=== PATIENT | female | born 1935 | race Caucasian/White ===

== ENCOUNTER 2018-10-24 08:53 | Inpatient (IN) | payer OTHER, MEDICAID ==
[~2018-10-24] VITALS: Ht 165.1 cm; Wt 80.3 kg
[2018-10-24 09:00] VITALS: BP_SYST 143
[2018-10-24] MEDS ORDERED: NACL 0.9% 1,000 ML IV ONE (09:11)
[2018-10-24] MEDS ORDERED: FURO-149 PEG (09:17)
[2018-10-24] MEDS ORDERED: AMIO100T4 PEG (09:19)
[2018-10-24] MEDS ORDERED: CLOP300T2 PEG (09:23)
[2018-10-24] MEDS ORDERED: NEPH PEG (09:23)
[2018-10-24] MEDS ORDERED: DOCU-144 PEG (09:23)
[2018-10-24] MEDS ORDERED: TRAM1TAB33 PEG (09:32)
[2018-10-24] MEDS ORDERED: SSNOVOLOG SUBCUT (09:32)
[2018-10-24] MEDS ORDERED: MEMA10TA PEG (09:32)
[2018-10-24] MEDS ORDERED: ASCO500S9 PEG (09:32)
[2018-10-24 09:49] LABS: BASOPHILS % (AUTO) 0.3 % (0.0-2.0); EOSINOPHILS # (AUTO) 0.2 K/uL (0.0-0.4); EOSINOPHILS % (AUTO) 1.5 % (0.0-4.0); HEMATOCRIT 33.7 % (36-48); HEMOGLOBIN 10.9 g/dL (12.0-16.0); LYMPHOCYTES # (AUTO) 1.8 K/uL (1.0-5.5); LYMPHOCYTES % (AUTO) 11.2 % (20.5-51.5); MEAN CORPUSCULAR HEMOGLOBIN 30 pg (27-31); MEAN CORPUSCULAR HGB CONC 33 % (32-36); MEAN CORPUSCULAR VOLUME 92 fL (79.0-98.0); MONOCYTES % (AUTO) 6.4 % (1.7-9.3); NEUTROPHILS # (AUTO) 12.7 K/uL (1.8-7.7); NEUTROPHILS % (AUTO) 80.6 % (40.0-70.0); PLATELET COUNT (AUTO) 178 K/uL (130-430); RED BLOOD CELL COUNT(AUTO) 3.68 MIL/uL (4.2-6.2); RED CELL DISTRIBUTION WIDTH 15.4 % (9.0-15.0); WHITE BLOOD COUNT (AUTO) 15.7 K/uL (4.8-10.8)
[2018-10-24 09:51] LABS: ANION GAP 12 (5-15); CHLORIDE 94 mmol/L (98-107); CREATININE 3.44 mg/dL (0.55-1.30); GLUCOSE 123 mg/dL (70-99); POTASSIUM 4.3 mmol/L (3.5-5.1); SODIUM SERUM 129 mmol/L (136-145); UREA NITROGEN, BLOOD 97 mg/dL (8-21)
[2018-10-24 09:55] LABS: ALANINE AMINOTRANSFERASE 18 U/L (12-78); ALBUMIN 2.6 g/dL (3.4-4.8); AMYLASE 71 U/L (0-100); ASPARTATE AMINOTRANSFERASE 15 U/L (10-37); LIPASE 230 U/L (73-393); TOTAL BILIRUBIN 0.3 mg/dL (0.0-1.0)
[2018-10-24] MEDS ORDERED: D5/0.45 NS 1,000 ML IV ONE (10:45)
[2018-10-24] MEDS ORDERED: INSULIN REGULAR, HUMAN 100 UNITS/ML, 10 ML VIAL (novoLIN R) SUBCUT PRN (10:45)
[2018-10-24] MEDS ORDERED: GLUCOSE 15 GM GEL (in 37.5 GM TUBE) PO PRN (11:00)
[2018-10-24] MEDS ORDERED: D5W 1,000 ML IV PRN (11:00)
[2018-10-24] MEDS ORDERED: DEXTROSE 50%-WATER 50 ML DISP.SYRIN IVP PRN (11:00)
[2018-10-24 11:18] VITALS: BP_SYST 178
[2018-10-24 14:30] LABS: BASOPHILS # (AUTO) 0.1 K/uL (0.0-0.2); BASOPHILS % (AUTO) 0.6 % (0.0-2.0); EOSINOPHILS # (AUTO) 0.1 K/uL (0.0-0.4); EOSINOPHILS % (AUTO) 1.1 % (0.0-4.0); HEMATOCRIT 33.7 % (36-48); HEMOGLOBIN 10.9 g/dL (12.0-16.0); LYMPHOCYTES # (AUTO) 1.5 K/uL (1.0-5.5); MEAN CORPUSCULAR HEMOGLOBIN 30 pg (27-31); MEAN CORPUSCULAR HGB CONC 32 % (32-36); MEAN CORPUSCULAR VOLUME 92 fL (79.0-98.0); MONOCYTES # (AUTO) 0.9 K/uL (0.0-1.0); MONOCYTES % (AUTO) 8.3 % (1.7-9.3); NEUTROPHILS # (AUTO) 8.4 K/uL (1.8-7.7); PLATELET COUNT (AUTO) 175 K/uL (130-430); RED BLOOD CELL COUNT(AUTO) 3.68 MIL/uL (4.2-6.2); RED CELL DISTRIBUTION WIDTH 15.4 % (9.0-15.0)
[2018-10-24 15:26] LABS: BILIRUBIN,URINE NEGATIVE (NEGATIVE); BLOOD, URINE 1+ (NEGATIVE); CLARITY/URINE SL CLOUDY (CLEAR); COLOR,URINE YELLOW (YELLOW); GLUCOSE,URINE NEGATIVE (NEGATIVE); KETONES,URINE NEGATIVE (NEGATIVE); LEUKOCYTE ESTERASE ,URINE 3+ (NEGATIVE); NITRITE, URINE NEGATIVE (NEGATIVE); PROTEIN URINE TRACE (NEGATIVE); UROBILINOGEN,URINE 0.2 (0.2-1.0)
[2018-10-24 15:52] LABS: BACTERIA,URINE FEW /HPF (None Seen); WBC,URINE >100 /HPF (0-3)
[2018-10-24 15:53] LABS: MUCUS,URINE None Seen /LPF (None Seen); URINE AMORPHOUS URATE 3+ /HPF (None Seen); YEAST,URINE Moderate /HPF (None Seen)
[2018-10-24 16:00] VITALS: BP_SYST 141
[2018-10-24 20:00] VITALS: BP_SYST 137
[2018-10-24] MEDS ORDERED: HEPARIN SODIUM,PORCINE 5000 UNITS/ML VIAL IVP ONE ×2 (20:00)
[2018-10-25 01:07] VITALS: BP_SYST 137
[2018-10-25 07:06] LABS: ANION GAP 10 (5-15); CALCIUM 8.8 mg/dL (8.4-11.0); CHLORIDE 97 mmol/L (98-107); CREATININE 2.74 mg/dL (0.55-1.30); GLUCOSE 113 mg/dL (70-99); POTASSIUM 3.5 mmol/L (3.5-5.1); SODIUM SERUM 132 mmol/L (136-145); UREA NITROGEN, BLOOD 55 mg/dL (8-21)
[2018-10-25 07:23] LABS: INR 1.1 (0.8-1.2)
[2018-10-25] MEDS ORDERED: *PPN PER PHARMACY XX PRN (07:45)
[2018-10-25 08:11] LABS: HEMATOCRIT 31.5 % (36-48); HEMOGLOBIN 10.1 g/dL (12.0-16.0); MEAN CORPUSCULAR HEMOGLOBIN 30 pg (27-31); MEAN CORPUSCULAR HGB CONC 32 % (32-36); MEAN CORPUSCULAR VOLUME 93 fL (79.0-98.0); RED BLOOD CELL COUNT(AUTO) 3.39 MIL/uL (4.2-6.2); WHITE BLOOD COUNT (AUTO) 6.5 K/uL (4.8-10.8)
[2018-10-25 08:12] LABS: BASOPHILS % (AUTO) 0.4 % (0.0-2.0); EOSINOPHILS # (AUTO) 0.1 K/uL (0.0-0.4); EOSINOPHILS % (AUTO) 1.6 % (0.0-4.0); LYMPHOCYTES # (AUTO) 1.2 K/uL (1.0-5.5); LYMPHOCYTES % (AUTO) 17.9 % (20.5-51.5); MONOCYTES # (AUTO) 0.9 K/uL (0.0-1.0); MONOCYTES % (AUTO) 13.1 % (1.7-9.3); NEUTROPHILS # (AUTO) 4.3 K/uL (1.8-7.7); PLATELET COUNT (AUTO) 173 K/uL (130-430); RED CELL DISTRIBUTION WIDTH 15.9 % (9.0-15.0)
[2018-10-25 08:15] VITALS: BP_SYST 123
[2018-10-25] MEDS ORDERED: D5/0.45 NS 1,000 ML IV SCH (10:30)
[2018-10-25] MEDS ORDERED: COMMUNICATION ORDER XX ONE (10:45)
[2018-10-25 11:23] VITALS: BP_SYST 125
[2018-10-25] MEDS: LEVOFLOXACIN 250 MG/D5W 50 ML IV SCH (11:48)
[2018-10-25 15:33] VITALS: BP_SYST 125
[2018-10-25] MEDS ORDERED: [UNRECOGNIZED DRUG - OTHER] IV SCH ×8 (18:00)
[2018-10-25] MEDS ORDERED: TPN PERIPHERAL IV SCH ×8 (18:00)
[2018-10-25] MEDS ORDERED: POTASSIUM CHLORIDE IV SCH ×8 (18:00)
[2018-10-25] MEDS ORDERED: SODIUM ACETATE IV SCH ×8 (18:00)
[2018-10-25 19:56] VITALS: BP_SYST 127
[2018-10-26 00:51] VITALS: BP_SYST 158
[2018-10-26 06:59] LABS: ALANINE AMINOTRANSFERASE 16 U/L (12-78); ALBUMIN 2.3 g/dL (3.4-4.8); ANION GAP 8 (5-15); ASPARTATE AMINOTRANSFERASE 13 U/L (10-37); CALCIUM 9.1 mg/dL (8.4-11.0); CHLORIDE 100 mmol/L (98-107); CREATININE 3.43 mg/dL (0.55-1.30); GLUCOSE 140 mg/dL (70-99); POTASSIUM 3.8 mmol/L (3.5-5.1); SODIUM SERUM 133 mmol/L (136-145); TOTAL BILIRUBIN 0.6 mg/dL (0.0-1.0); TRIGLYCERIDES 42 mg/dL (30-150); UREA NITROGEN, BLOOD 62 mg/dL (8-21)
[2018-10-26 08:00] VITALS: BP_SYST 137
[2018-10-26] MEDS: LEVOFLOXACIN 250 MG/D5W 50 ML IV SCH (10:45)
[2018-10-26 11:17] VITALS: BP_SYST 147
[2018-10-26] MEDS ORDERED: GASTROGRAFIN 120 ML ONE (11:54)
[2018-10-26 15:34] VITALS: BP_SYST 145
[2018-10-26] MEDS: FAT EMULSIONS 250 ML IV SCH (17:34)
[2018-10-26] MEDS ORDERED: TPN PERIPHERAL 0.0001 ML, SODIUM ACETATE 40 MEQ, POTASSIUM CHLORIDE 20 MEQ, K PHOS 9 MM... IV SCH ×9 (18:00)
[2018-10-26 20:12] VITALS: BP_SYST 137
[2018-10-27] VITALS (7 sets, daily range): BP systolic 123–158
[2018-10-27 07:11] LABS: ALANINE AMINOTRANSFERASE 13 U/L (12-78); ALBUMIN 2.1 g/dL (3.4-4.8); ANION GAP 9 (5-15); ASPARTATE AMINOTRANSFERASE 13 U/L (10-37); CALCIUM 8.8 mg/dL (8.4-11.0); CHLORIDE 99 mmol/L (98-107); CREATININE 4.18 mg/dL (0.55-1.30); GLUCOSE 148 mg/dL (70-99); PHOSPHORUS 4.6 mg/dL (2.7-4.5); POTASSIUM 3.9 mmol/L (3.5-5.1); SODIUM SERUM 133 mmol/L (136-145); TOTAL BILIRUBIN 0.5 mg/dL (0.0-1.0); UREA NITROGEN, BLOOD 73 mg/dL (8-21)
[2018-10-27 07:14] LABS: BASOPHILS % (AUTO) 0.2 % (0.0-2.0); EOSINOPHILS # (AUTO) 0.2 K/uL (0.0-0.4); HEMATOCRIT 33.3 % (36-48); HEMOGLOBIN 10.7 g/dL (12.0-16.0); LYMPHOCYTES # (AUTO) 1.3 K/uL (1.0-5.5); LYMPHOCYTES % (AUTO) 14.9 % (20.5-51.5); MEAN CORPUSCULAR HEMOGLOBIN 30 pg (27-31); MEAN CORPUSCULAR HGB CONC 32 % (32-36); MEAN CORPUSCULAR VOLUME 93 fL (79.0-98.0); MONOCYTES # (AUTO) 1.1 K/uL (0.0-1.0); MONOCYTES % (AUTO) 12.9 % (1.7-9.3); NEUTROPHILS # (AUTO) 5.9 K/uL (1.8-7.7); PLATELET COUNT (AUTO) 153 K/uL (130-430); RED BLOOD CELL COUNT(AUTO) 3.57 MIL/uL (4.2-6.2); RED CELL DISTRIBUTION WIDTH 15.8 % (9.0-15.0); WHITE BLOOD COUNT (AUTO) 8.5 K/uL (4.8-10.8)
[2018-10-27] MEDS ORDERED: FLUCONAZOLE 100 mg/ NS 50 ML IV SCH (10:00)
[2018-10-27] MEDS: LEVOFLOXACIN 250 MG/D5W 50 ML IV SCH (10:14)
[2018-10-27] MEDS: FAT EMULSIONS 250 ML IV SCH (17:29)
[2018-10-27] MEDS ORDERED: [UNRECOGNIZED DRUG - OTHER] IV SCH ×9 (18:00)
[2018-10-27] MEDS ORDERED: TPN PERIPHERAL IV SCH ×9 (18:00)
[2018-10-27] MEDS ORDERED: POTASSIUM CHLORIDE IV SCH ×9 (18:00)
[2018-10-27] MEDS ORDERED: SODIUM ACETATE IV SCH ×9 (18:00)
[2018-10-27] MEDS ORDERED: FLUCONAZOLE 100 MG TABLET (DIFLUCAN) PO ONE (19:15)
[2018-10-28 00:18] VITALS: BP_SYST 141
[2018-10-28 06:50] LABS: ANION GAP 10 (5-15); CHLORIDE 99 mmol/L (98-107); CREATININE 3.69 mg/dL (0.55-1.30); GLUCOSE 132 mg/dL (70-99); POTASSIUM 3.6 mmol/L (3.5-5.1); SODIUM SERUM 134 mmol/L (136-145); UREA NITROGEN, BLOOD 57 mg/dL (8-21)
[2018-10-28 08:36] VITALS: BP_SYST 117
[2018-10-28] MEDS ORDERED: FLUCONAZOLE 100 MG TABLET (DIFLUCAN) GT SCH (09:00)
[2018-10-28] MEDS ORDERED: FLUCONAZOLE 100 MG TABLET (DIFLUCAN) PO SCH (09:00)
[2018-10-28] MEDS ORDERED: AMIODARONE HCL 200 MG TABLET GT ONE (10:15)
[2018-10-28] MEDS: LEVOFLOXACIN 250 MG/D5W 50 ML IV SCH (10:34)
[2018-10-28 11:20] VITALS: BP_SYST 119
[2018-10-28 15:50] VITALS: BP_SYST 141
[2018-10-28] MEDS ORDERED: LEVO250T2 GT (17:22)
[2018-10-28 17:51] VITALS: BP_SYST 141
[2018-10-28 19:30] VITALS: BP_SYST 135
[2018-10-29] MEDS ORDERED: AMIODARONE HCL 200 MG TABLET GT SCH (09:00)
== END 2018-10-28 20:08 | DRG 393 ==
LOC: SED 08:53 → STU 10:33
PROVIDERS: ADMIT Internal Medicine; ATTEND Family Medicine
PROC: 5A1D70Z Performance of Urinary Filtration, Intermittent, Less than 6 Hours Per Day (ICD-10-PCS; 2018-10-23)
PROC: 5A1955Z Respiratory Ventilation, Greater than 96 Consecutive Hours (ICD-10-PCS; 2018-10-24)
PROC: 0D20XUZ Change Feeding Device in Upper Intestinal Tract, External Approach (ICD-10-PCS; principal; 2018-10-26)
PROC: 5A1D70Z Performance of Urinary Filtration, Intermittent, Less than 6 Hours Per Day (ICD-10-PCS; 2018-10-27)
DX: K94.13 Enterostomy malfunction (principal); N18.6 End stage renal disease; E43 Unspecified severe protein-calorie malnutrition; J18.1 Lobar pneumonia, unspecified organism; K94.23 Gastrostomy malfunction; N39.0 Urinary tract infection, site not specified; Z99.11 Dependence on respirator [ventilator] status; G93.40 Encephalopathy, unspecified; J96.10 Chronic respiratory failure, unspecified whether with hypoxia or hypercapnia; K31.6 Fistula of stomach and duodenum; B37.89 Other sites of candidiasis; D64.9 Anemia, unspecified; E11.22 Type 2 diabetes mellitus with diabetic chronic kidney disease; I48.91 Unspecified atrial fibrillation; R13.10 Dysphagia, unspecified; L89.109 Pressure ulcer of unspecified part of back, unspecified stage; Y73.8 Miscellaneous gastroenterology and urology devices associated with adverse incidents, not elsewhere classified; Y84.8 Other medical procedures as the cause of abnormal reaction of the patient, or of later complication, without mention of misadventure at the time of the procedure; Z99.2 Dependence on renal dialysis; Z68.29 Body mass index [BMI] 29.0-29.9, adult; Z88.0 Allergy status to penicillin; Z79.899 Other long term (current) drug therapy; Z79.4 Long term (current) use of insulin
CPT/HCPCS: 36415; 36600; 71045; 74018; 74240-TC; 80048; 80053; 81000-TC; 82150-TC; 82550-TC; 82803-TC; 82962; 83605; 83690-TC; 83735-TC; 84100-TC; 84478-TC; 84484; 85025; 85610-TC; 85730-TC; 87040-TC; 87081; 87086; 90935; 90937; 93005; 94002; 94003; 94640; 94760; 96360; 99285; G0378; J1450; J1644; J1815; J1956; J3475; J3480; J7030; Q9963